=== PATIENT | male | born 1975 | race African-American/Black ===

== ENCOUNTER 2020-07-24 01:35 | Emergency (ER) | payer SELFPAY ==
[~2020-07-24] VITALS: Ht 170.2 cm; Wt 90.7 kg
--- NOTE | 2020-07-24 01:40 | NUR ---
PATIENT CAME TO THE ER BIBRA 59 C/O MIDSTERNAL CHEST PAIN FROM THE RED METROLINE WHILE [employer] WAS DOING A SWEEP IN THE LINE. PATIENT STATES THAT HE WAS HAVING CHEST PAIN WHEN HE WAS ASKED BY [employer] TO LEAVE THE VICINITY. PATIENT RECEIVED ASPIRIN 162MG AND NITRO SPRAY EN ROUTE IN THE AMBULANCE. PATIENT IS AAOX4. NO SOB. BREATHING EVENLY AND UNLABORED ON ROOM AIR. 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
--- NOTE | 2020-07-24 01:44 | NUR ---
PARADICHLOROBENZENE TENDER AT BEDSIDE FOR BLOOD DRAW
[2020-07-24] MEDS ORDERED: LIDOCAINE VISCOUS 2% UD 15 ML UDC MM ONE (02:00)
[2020-07-24] MEDS ORDERED: MAG HYDROX/AL HYDROX/SIMETH 30 ML UDC PO ONE (02:00)
[2020-07-24] MEDS ORDERED: PANTOPRAZOLE 40 MG TABLET.DR PO ONE ×2 (02:00→02:03)
[2020-07-24 02:01] LABS: BASOPHILS # (AUTO) 0.1 /CMM (0.0-0.2); BASOPHILS % (AUTO) 0.9 % (0.0-2.0); EOSINOPHILS % (AUTO) 6.4 % (0.0-6.0); HEMATOCRIT 45 % (39-51); LYMPHOCYTES # (AUTO) 1.5 /CMM (0.8-4.8); MEAN CORPUSCULAR HGB CONC 34 g/dl (31.0-36.0); MEAN CORPUSCULAR VOLUME 94 fL (80-96); MONOCYTES # (AUTO) 0.9 /CMM (0.1-1.30); MONOCYTES % (AUTO) 11.2 % (2.0-12.0); NEUTROPHILS # (AUTO) 5.3 /CMM (1.8-8.9); NEUTROPHILS % (AUTO) 63.5 % (43.0-81.0); PLATELET COUNT (AUTO) 336 /CMM (150-450); RED BLOOD CELL COUNT(AUTO) 4.76 MIL/uL (4.5-6.0); WHITE BLOOD COUNT (AUTO) 8.3 K/uL (4.3-11.0)
[2020-07-24] MEDS ORDERED: LIDOCAINE VISCOUS 2% UD 15 ML UDC ONE (02:03)
[2020-07-24] MEDS ORDERED: MAG HYDROX/AL HYDROX/SIMETH 30 ML UDC ONE (02:03)
[2020-07-24 02:09] LABS: CALCIUM, SERUM 9.3 mg/dL (8.5-10.1); CARBON DIOXIDE 31 mmol/L (21-32); CHLORIDE 109 mmol/L (98-107); CREATININE 1.2 mg/dL (0.6-1.3); GLUCOSE 112 mg/dL (74-106); POTASSIUM 4.5 mmol/L (3.5-5.1); SODIUM SERUM 147 mmol/L (136-145); UREA NITROGEN, BLOOD 12 mg/dL (7-18)
[2020-07-24] MEDS ORDERED: FAMO-131 PO (02:25)
[2020-07-24] MEDS ORDERED: MAG355OR18 PO (02:25)
--- NOTE | 2020-07-24 02:33 | NUR ---
PATIENT REFUSED TO SIGN PAPERWORK.
--- NOTE | 2020-07-24 02:43 | NUR ---
Patient discharged to home in stable condition. Written and verbal after care instructions given. Patient verbalizes understanding of instruction.
[2020-07-24 02:44] VITALS: BP 132/70
== END 2020-07-24 02:45 | disposition home or self-care (01) ==
LOC: ER 01:38
DX: R07.89 Other chest pain (principal); K21.9 Gastro-esophageal reflux disease without esophagitis; Z59.0 Homelessness; Z79.899 Other long term (current) drug therapy
CPT/HCPCS: 36415; 71045-TC; 80048-TC; 84484-TC; 85025-TC